=== PATIENT | male | born 1995 ===

== ENCOUNTER 2022-06-29 14:50 | Inpatient (IN) | payer MEDICAID, MEDICARE ==
[2022-06-29] MEDS ORDERED: hydrOXYzine pamoate 25 MG CAP PO PRN (15:21)
[2022-06-29] MEDS ORDERED: chlorproMAZINE 25 MG/ML 2 ML AMP IM PRN (15:21)
[2022-06-29] MEDS ORDERED: LORazepam 2 MG/ML INJ IM PRN (15:21)
[2022-06-29] MEDS ORDERED: chlorproMAZINE 25 MG TAB PO PRN (15:21)
[2022-06-29] MEDS ORDERED: ACETAMINOPHEN TAB 325 MG TAB PO PRN (15:31)
[2022-06-29] MEDS ORDERED: MAGNESIUM HYDROXIDE 2,400 MG/10 ML CUP PO PRN (15:31)
[2022-06-29] MEDS ORDERED: MAG HYDROX/AL HYDROX/SIMETH 30 ML CUP PO PRN (15:31)
[2022-06-29] MEDS ORDERED: QUEtiapine 100 MG TAB PO SCH (21:00)
[2022-06-30] MEDS: VENLAFAXINE HCL 37.5 MG TAB PO SCH ×3 (05:41→08:51)
[2022-06-30] MEDS: NICOTINE 14MG/24HR PATCH TRANSDERM SCH ×2 (08:46→08:51)
[2022-06-30] MEDS: VENLAFAXINE HCL ER 37.5 MG CAP PO SCH (11:27)
[2022-06-30] MEDS: ARIPiprazole 5 MG TAB PO SCH (11:28)
--- NOTE | 2022-06-30 11:48 | P.HP ---
Psychiatric H&P - . H&P Date: 06/30/22 History & Physical: Allergies Allergy/AdvReac Type Severity Reaction Status Date / Time No Known Allergies Allergy Verified 06/30/22 06:02 Vital Signs Temp 97.7 F 06/30/22 05:30 Pulse 83 06/30/22 05:30 Resp 15 06/30/22 05:30 BP 129/83 06/30/22 05:30 Pulse Ox 95 06/30/22 05:30 FiO2 Intake & Output 06/29/22 06/30/22 06/30/22 18:59 06:59 18:59 Weight 77 kg 75.438 kg 06/30/22 11:39 IDENTIFYING DATA: Patient is a 26-year-old male who currently lives in a retirement, is single not , has no kids. He collects SSI. He has a public guardian. HPI: Patient presented to the hospital as a transfer from [facility] and arrived on the unit early this morning. According to the EPS report, patient was apparently agitated at his retirement and was noncompliant with medications and treatment. Patient apparently patient was walking into other people's rooms and was argumentative and having mood swings. Patient was petitioned and a first certificate was completed before transfer. The patient was seen wandering the hallways and agreeable filing writer. He had poor hygiene and grooming. Patient was fairly concrete, evasive and guarded. He spoke about "threatening people and arguing" at his retirement. He states that he was there for 1 day. He claims that "they just wanted me out". He states that he did not harm anybody however states that he almost did. He claims that he had a "weird episode" where he felt very argumentative and agitated. He believes that he does not need medications and states that doctors and pharmaceutical companies are "trying to make money off medications" and he felt that he does not need it for himself. He claims that his mood is "low". He describes an increase in his anxiety lately. He has very poor insight and judgment. He claims that his sleep and appetite have been fair. Patient denies any current suicidal or homicidal ideations intent or plan. At this time patient denies any auditory or visual hallucinations. Patient denies any flight of ideas racing thoughts and increased in goal directed behavior. Patient admits to using marijuana daily and cigarettes daily. PAST PSYCHIATRIC HISTORY: Patient states that he has been admitted several times to different psychiatric units. He claims that he was recently released from [facility] about a week ago. He claims that he does follow up with [facility] and is also followed by the act team. Patient states that he has been on several different antipsychotics in the past however, remember douglas Chua and also claims that he was on Effexor in the past Ativan and Tegretol.. He states that he lives previously on a court order. He claims that he once attempted to hang himself when he was in longterm. PMH:denies ALLERGIES: as per EMR CHEMICAL DEPENDENCY HISTORY: as per HPI FAMILY PSYCHIATRIC/SUBSTANCE USE HISTORY: He states that his grandfather and his uncle both had schizophrenia. SOCIAL HISTORY: Patient was born and raised in [place] and also in [facility]. He states that he completed high school and some college. 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 His current currently collecting SSI. He has a guardian. He is single has no kids. He lives in a retirement. He served time in longterm for possession and also several drug-related charges. MENTAL STATUS EXAM: General Appearance: Patient appears to be thin, disheveled appearance, tattoos, stated age is alert, irritable at times, guarded and evasive. Patient appears to have poor hygiene and grooming. Behavior: Patient is seated without any agitated behavior. Irritable and guarded and evasive. Speech: Patient's speech is fluent and nonpressured. [place]. Mood/Affect: Patient reports their mood is "low", affect is congruent and constricted. Suicidality/Homicidality: Patient denies having any homicidal ideation intent or plan. Denies any suicidal ideations intent or plan Perceptions: Patient denies any visual hallucinations and denies any auditory hallucinations Though content/process: There is no evidence of any delusional thought content and thought process is linear and goal-directed. Very poor insight and judgment. Positive content. Memory and concentration: AOX3, grossly intact for the purposes of this session. Can spell "WORLD" backwards Judgment and insight: poor STRENGTHS/WEAKNESSES: strength is that patient is resilient. Weakness is that patient has poor judgment and is impulsive INTELLECT: average IMPRESSIONS: Psychosis unspecified, likely schizoaffective disorder versus schizophrenia\\ Cannabis use disorder Nicotine dependence PLAN: -Patient is admitted under involuntary status to MHU for stabilization of psychiatric symptoms and safety. Patient has signed medication consent and is placed in patient's chart. A second certification was completed and along with petition will be filed for court. -Medications : Will start patient on Abilify 5 mg daily for psychosis/mood stabilization. Effexor 37.5 mg daily for mood/anxiety. -Ativan, thorazine, Vistaril PRN for agitation/aggression and anxiety -Patient was counselled on substance abuse and desired to cut back on use -Patient was informed of the risks, benefits and side effects of the medication and patient verbally consented to taking the medications. Patient signed med consent form and was placed in chart. -Internal Medicine consult to perform medical evaluation and physical. -NRT - nicotine patch and nicotine gum -SW on board for discharge planning. Encourage patient to participate in groups to work on coping skills. Will await deferral and court date. 06/30/22 11:47
[2022-06-30] MEDS: NICOTINE GUM (POLACRILEX) 2 MG GUM BUCCAL PRN ×2 (12:08→21:25)
[2022-06-30 17:58] LABS: ALT 23 U/L (4-49); AST 24 U/L (17-59); African American GFR (CKD) >90 (>60 ml/min/1.73 sqM); Albumin 4.6 g/dL (3.5-5.0); Alkaline Phosphatase 94 U/L (38-126); Anion Gap 12 mmol/L; Bilirubin, Delta 0.2 mg/dL (0.0-0.2); Blood Urea Nitrogen 17 mg/dL (9-20); Calcium 9.6 mg/dL (8.4-10.2); Carbon Dioxide 26 mmol/L (22-30); Chloride 101 mmol/L (98-107); Glucose 95 mg/dL (74-99); Non-African American GFR(CKD) >90 (>60 ml/min/1.73 sqM); Potassium 4.7 mmol/L (3.5-5.1); Sodium 139 mmol/L (137-145); Total Bilirubin 0.2 mg/dL (0.2-1.3); Total Protein 7.2 g/dL (6.3-8.2)
--- NOTE | 2022-06-30 18:26 | P.MDCNMH ---
History of Present Illness H&P Date: 06/30/22 History of Presenting Illness: Patient is a 26-year-old male with a past medical history of schizoaffective disorder, bipolar disorder, and ADHD. He resides in a care home and has a public guardian. Patient is currently admitted to inpatient mental health unit after being transferred from [facility] secondary to medication and treatment noncompliance. We have been consulted for medical management throughout patient's hospitalization. Patient seen and evaluated in mental health unit. Patient cooperative. He was alert and oriented 4 answering all questions appropriately. He reports smoking one pack of cigarettes daily, daily cannabis use, and occasional EtOH use. Patient also admits to prescription abuse and abusing his medications taking more than what he is supposed to. He currently denies having any complaints including headache, lightheadedness, dizziness, chest pain, palpitations, shortness of breath, changes in appetite, nausea, or vomiting. Patient denies having history of self-inflicted injuries, suicidal or homicidal ideations, or experiencing any verbal/tactile/auditory hallucinations. .. CMP reviewed and was unremarkable. Review of systems: Pertinent positives and negatives as discussed in HPI, a complete review of systems was performed and all other systems are negative. Physical exam: Vital signs reviewed and stable. General: Nontoxic, no distress and appears stated age. Derm: Skin warm and dry, normal coloration for ethnicity. Head: Atraumatic, normocephalic and symmetric. Eyes: EOMs intact, no lid lag, and anicteric sclera Mouth: no lip lesions, mucus membranes moist Cardiovascular: regular rate and rhythm with normal S1S2, no murmur, positive posterior tibial pulses bilaterally, and cap refill < 2 seconds. Lungs: Respirations even, regular, and unlabored on room air. Lungs CTA bilaterally, no rhonchi, no rales, no wheezing, and no accessory muscle usage. Abdominal: soft, nontender to palpation, no guarding, no appreciable organomegaly Ext: ROM intact. No gross muscle atrophy, no edema, no contractures Neuro: Speech clear, face symmetrical and CN II-XII grossly intact with no noted focal neuro deficits Psych: Alert and oriented to person, place, time, and situation. Appropriate and pleasant affect. Assessment and Plan of Care: Schizoaffective disorder, bipolar disorder, and ADHD with reports of medication and treatment noncompliance -Management per primary admitting psychiatric team. -Provide safe and supportive care. Daily Cannabis use -Recommend cessation of use Nicotine dependence -Recommend smoking cessation -Nicotine patch Thank you for allowing us to participate in the care of this pleasant patient. Do not hesitate to contact us with questions. Someone can be reached from the [facility] hospitalist group all hours of the day at [phone] or via [employer]. Past Medical History Smoking Status: Current every day smoker Medications and Allergies Home Medications Medication Instructions Recorded Confirmed Type Lurasidone [Latuda] 20 mg PO BID 06/29/22 06/30/22 History QUEtiapine [SEROquel] 200 mg PO HS 06/29/22 06/30/22 History Venlafaxine HCl [Effexor] 37.5 mg PO BID 06/29/22 06/30/22 History carBAMazepine 100 mg PO TID 06/29/22 06/30/22 History hydrOXYzine HCL 25 mg PO TID 06/29/22 06/30/22 History Allergies Allergy/AdvReac Type Severity Reaction Status Date / Time No Known Allergies Allergy Verified 06/30/22 06:02 Physical Exam Vitals: Vital Signs Temp Pulse Resp BP Pulse Ox 06/30/22 05:30 97.7 F 83 15 129/83 95 Intake and Output 06/29/22 06/30/22 06/30/22 22:59 06:59 14:59 Other: Weight 77 kg 75.438 kg Cranial Nerve Examination - Cranial Nerves Cranial Nerve II- Optic: Intact Cranial Nerve III- Oculomotor: Intact Cranial Nerve IV- Trochlear: Intact Cranial Nerve V- Trigeminal: Intact Cranial Nerve - Abducens: Intact Cranial Nerve VII- Facial: Intact Cranial Nerve VIII- Auditory: Intact Cranial Nerve IX- Glossopharyngeal: Intact Cranial Nerve X- Vagus: Intact Cranial Nerve XI- Accessory: Intact Cranial Nerve XII- Hypoglossal: Intact Results CBC & Chem 7: 06/30/22 16:56
[2022-07-01] MEDS: LORazepam 1 MG TAB PO PRN ×2 (00:50→16:34)
[2022-07-01 01:38] LABS: Chol/HDL Ratio 4.94 Ratio; LDL Cholesterol,Calculated 74.2 mg/dL (0.0-131.0)
[2022-07-01] MEDS: NICOTINE 14MG/24HR PATCH TRANSDERM SCH (09:00)
[2022-07-01] MEDS: ARIPiprazole 5 MG TAB PO SCH (09:01)
[2022-07-01] MEDS: VENLAFAXINE HCL ER 37.5 MG CAP PO SCH (09:02)
[2022-07-01] MEDS: NICOTINE GUM (POLACRILEX) 2 MG GUM BUCCAL PRN ×4 (09:03→22:07)
--- NOTE | 2022-07-01 11:21 | P.PN ---
Progress Note - Text Progress Note Date: 07/01/22 Interval History: Patient was seen sitting in a group today and was directable and agreeable to speak with senior technical writer in the office. Patient initially appeared to be somewhat irritable with senior technical writer and asked "we really have to do this every day". He gradually became more cooperative during the interview and states that he is doing "a bit better" compared to yesterday. He states that he does feel little bit less irritable and less impulsive. He states that he is tolerating the medications fairly well at this time not reporting any side effects. 90 overnight complaints. He states that he is able to sleep about 5-6 hours last night however was asking about potentially being started on trazodone as it is helped him in the past. He states his appetite has been improving. He has gone to some groups however claims that he is not learning much from them. At this time patient denies any suicidal or homical ideations, intent or plan. Patient denies any auditory, visual hallucinations and denies any paranoia or delusions. Patient denies any side effects from the medications and has been compliant with meds. Mental Status Exam: General Appearance: Patient appears to be thin, tattoos, stated age is alert, less irritable at times, more directable today. Patient appears to have improvi ng hygiene and grooming. Behavior: Patient is seated without any agitated behavior. Irritable and guarded, improving midlly Speech: Patient's speech is fluent and nonpressured. [place]. Mood/Affect: Patient reports their mood is "better and more stable", affect is congruent and constricted. Suicidality/Homicidality: Patient denies having any homicidal ideation intent or plan. Denies any suicidal ideations intent or plan Perceptions: Patient denies any visual hallucinations and denies any auditory hallucinations Though content/process: There is no evidence of any delusional thought content and thought process is linear and goal-directed. concrete Memory and concentration: AOX3, grossly intact for the purposes of this session Judgment and insight: chronically poor, improving mildly IMPRESSIONS: Psychosis unspecified, likely schizoaffective disorder versus schizophrenia Cannabis use disorder Nicotine dependence Plan: -Patient continues to meet criteria for inpatient psychiatric admission for symptom stabilization and safety. Patient has [not] signed [adult voluntary form and] [medication consent] and was placed in patient's chart. -Medications: increase Abilify 10 mg daily for psychosis/mood stabilization. Effexor 37.5 mg daily for mood/anxiety. added trazodone 50 mg qhs for insomnia/mood. -Ativan, thorazine, Vistaril PRN for agitation/aggression and anxiety -NRT - [nicotine patch] and nicotine gum -SW on board for discharge planning. Encouraged the patient to participate in milieu. Patient is on an active treatment order at this time. will need to transition patient onto NI prior to d/c to ensure compliance this will occur likely over the weekend. likely discharge tuesday.
[2022-07-01] MEDS: traZODone HCL 50 MG TAB PO SCH (20:45)
[2022-07-02] MEDS ORDERED: ARIPiprazole 10 MG TAB PO SCH (09:00)
[2022-07-02] MEDS: VENLAFAXINE HCL ER 37.5 MG CAP PO SCH (09:01)
[2022-07-02] MEDS: NICOTINE GUM (POLACRILEX) 2 MG GUM BUCCAL PRN ×2 (09:15→18:53)
[2022-07-02] MEDS ORDERED: VENLAFAXINE HCL ER 37.5 MG CAP PO STA (11:47)
--- NOTE | 2022-07-02 12:17 | P.PN ---
Progress Note - Text Progress Note Date: 07/02/22 Interval History: Patient was seen sitting in a group today and was directable and agreeable to speak with designer/writer in the office. Patient continues to be fairly concrete and positive content. He denied any problems with medications overnight. He gradually became more cooperative during the interview and states that he is doing "a bit better" compared to yesterday. He states that he does feel little bit less irritable and less impulsive. He states that he is tolerating the medications fairly well. He is not reporting any side effects at this time. He states that he slept about 6 hours last night. He claims that he has been going to groups and attending to participate. He continues to not know where he is going be discharged. Continues to have chronically poor insight and judgment. We spoke about transitioning onto long-acting injection however patient was fairly resistant to it despite being on a court order. Woven Blind Loom Tender attempted to engage this patient in answer any questions however patient was hostile and states that he does not "believe in injections". At this time patient denies any suicidal or homical ideations, intent or plan. Patient denies any auditory, visual hallucinations and denies any paranoia or delusions. Patient denies any side effects from the medications and has been compliant with meds. Mental Status Exam: General Appearance: Patient appears to be thin, tattoos, stated age is alert, less irritable at times, more directable today. Patient appears to have improving hygiene and grooming. Behavior: Patient is seated without any agitated behavior. Irritable and guarded, improving midlly Speech: Patient's speech is fluent and nonpressured. [place]. Mood/Affect: Patient reports their mood is "ok", affect is congruent and constricted yet somewhat irritable. Suicidality/Homicidality: Patient denies having any homicidal ideation intent or plan. Denies any suicidal ideations intent or plan Perceptions: Patient denies any visual hallucinations and denies any auditory hallucinations Though content/process: There is no evidence of any delusional thought content and thought process is linear and goal-directed. concrete Memory and concentration: AOX3, grossly intact for the purposes of this session Judgment and insight: chronically poor, improving mildly IMPRESSIONS: Psychosis unspecified, likely schizoaffective disorder versus schizophrenia Cannabis use disorder Nicotine dependence Plan: -Patient continues to meet criteria for inpatient psychiatric admission for symptom stabilization and safety. Patient has [not] signed [adult voluntary form and] [medication consent] and was placed in patient's chart. -Medications: increase Abilify 15 mg daily for psychosis/mood stabilization and will likely hold at this dose. Woven Blind Loom Tender discussed with patient the transition onto Abilify Maintenna to ensure compliance and will order this 400 mg IM for tuesday morning. increase Effexor 75 mg daily for mood/anxiety, trazodone 50 mg qhs for insomnia/mood. -Ativan, thorazine, Vistaril PRN for agitation/aggression and anxiety -NRT - [nicotine patch] and nicotine gum -SW on board for discharge planning. Encouraged the patient to participate in milieu. Patient is on an active treatment order at this time. will need to transition patient onto NI prior to d/c to ensure compliance this will occur likely over the weekend. likely discharge tuesday-tuesday depending on where zachary wants patient to be discharged to.
[2022-07-02] MEDS: LORazepam 1 MG TAB PO PRN (18:52)
[2022-07-02] MEDS: traZODone HCL 50 MG TAB PO SCH (20:44)
[2022-07-03] MEDS: VENLAFAXINE HCL ER 75 MG CAP PO SCH (08:28)
[2022-07-03] MEDS: ARIPiprazole 15 MG TAB PO SCH (08:28)
[2022-07-03] MEDS ORDERED: ARIPiprazole IM 400 MG VIAL (NO COST) PHARMACY STOCK IM ONE (09:00)
[2022-07-03] MEDS ORDERED: ARIPiprazole IM SYRINGE 400 MG (NO CHARGE) PHARMACY STOCK IM ONE (09:00)
--- NOTE | 2022-07-03 13:58 | P.PN ---
Progress Note - Text Progress Note Date: 07/03/22 Clinical Problems: Unspecified psychotic disorder, rule out schizoaffective disorder, rule out schizophrenia, cannabis use disorder, tobacco use Interim history: I reviewed the medical record and interviewed the patient. The patient's only concern is housing. He stated that he was in a [facility] prior to admission but had to leave because "an argument." As of now he has no stable housing. He denied feeling depressed or having thoughts of or suicide. He denied feeling angry, irritable or suspicious. He denied suicidal ideation. He denied experiencing auditory, visual or olfactory hallucinations, ideas reference, thought insertion or paranoia. He is compliant with prescribed medications. He intermittently attends therapeutic groups and activities. He is posed no management problem and several episodes of behavioral dyscontrol. Mental status exam: He presented as a casually groomed 18-year-old male. He had a galan and multiple tattoos. He made eye contact and appeared to attend to the interview. He had a blunted facial expression. He was alert and oriented to person, place and time. Slight psychomotor retardation but no abnormal involuntary movements. His gait was slow but steady. His speech was spontaneous with decreased rhythm and volume. His affect was flat. He denied suicidal ideation, wishes or homicidal ideation. He denied feeling hopeless, helpless or worthless. He ruminated about his living circumstances. He did not express ideas reference, paranoid ideation or delusions. His thinking was concrete but his associations were coherent, logical and goal directed. He denied hallucinations did not appear to be responding to internal stimuli. Assessment: He presented no episodes of aggression or agitation since admission. Plan: Continue inpatient treatment. Safety precautions. Continue current psychotropic medications Abilify 15 mg daily, trazodone 50 mg at bedtime and Effexor XR 75 mg daily. Thorazine and/or Ativan when necessary for agitation, aggression acute psychosis. Encourage participation in therapeutic groups and activities. Evaluate clinical status response to treatment daily basis.
[2022-07-03] MEDS: LORazepam 1 MG TAB PO PRN (18:55)
[2022-07-03] MEDS: traZODone HCL 50 MG TAB PO SCH (20:08)
[2022-07-03] MEDS: NICOTINE GUM (POLACRILEX) 2 MG GUM BUCCAL PRN (20:08)
[2022-07-04] MEDS: ARIPiprazole 15 MG TAB PO SCH (08:39)
[2022-07-04] MEDS: VENLAFAXINE HCL ER 75 MG CAP PO SCH (08:39)
[2022-07-04] MEDS: LORazepam 1 MG TAB PO PRN ×3 (11:53→20:47)
[2022-07-04] MEDS: NICOTINE GUM (POLACRILEX) 2 MG GUM BUCCAL PRN ×4 (11:53→20:47)
--- NOTE | 2022-07-04 12:03 | P.PN ---
Progress Note - Text Progress Note Date: 07/04/22 Clinical Problems: Unspecified psychotic disorder, rule out schizoaffective disorder, rule out schizophrenia, cannabis use disorder, tobacco use Interim history: I reviewed the medical record and interviewed the patient. He denied problems or concerns today. He has been requesting Ativan for complaints of subjective anxiety. He is compliant with prescribed medications. He intermittently attends therapeutic groups and activities. He is posed no management problem and several episodes of behavioral dyscontrol. Mental status exam: He was pleasant and cooperative. He made eye contact and appeared to attend to the interview. He had a blunted facial expression. He was alert and oriented to person, place and time. He had slight psychomotor retardation but no abnormal involuntary movements. His gait was slow but steady. His speech was spontaneous with decreased rhythm and volume. His affect was flat. He denied suicidal ideation, wishes or homicidal ideation. He denied feeling hopeless, helpless or worthless. He ruminated about his living circumstances. He did not express ideas reference, paranoid ideation or delusions. His thinking was concrete but his associations were coherent, logical and goal directed. He denied hallucinations did not appear to be responding to internal stimuli. Assessment: He is moderately mentally ill remarkably improve from admission Plan: Continue inpatient treatment. Safety precautions. Continue current psychotropic medications Abilify 15 mg daily, trazodone 50 mg at bedtime and Effexor XR 75 mg daily. Thorazine and/or Ativan when necessary for agitation, aggression acute psychosis. Encourage participation in therapeutic groups and activities. Evaluate clinical status response to treatment daily basis.
[2022-07-04] MEDS: traZODone HCL 50 MG TAB PO SCH (20:47)
[2022-07-05] MEDS: VENLAFAXINE HCL ER 75 MG CAP PO SCH (09:09)
[2022-07-05] MEDS: ARIPiprazole 15 MG TAB PO SCH (09:09)
[2022-07-05 09:10] VITALS: BP 117/79; PULSE 114; RESP 20; TEMP 97.3
[2022-07-05] MEDS: LORazepam 1 MG TAB PO PRN (09:22)
[2022-07-05] MEDS ORDERED: VENLAFAXINE HCL ER 75 MG CAP PO STA (09:39)
[2022-07-05] MEDS: NICOTINE GUM (POLACRILEX) 2 MG GUM BUCCAL PRN (09:52)
--- NOTE | 2022-07-05 09:52 | P.DS ---
Providers Date of admission: 06/30/22 05:31 Expected date of discharge: 07/05/22 Attending physician: Jason Michel MD Consults: 06/29/22 15:31 Consult Physician Routine Consulting Provider: [facility] Consult Reason/Comments: H & P Do you want consulting provider notified?: Yes, Notify in am Primary care physician: Stated None - Discharge Diagnosis(es) (1) Unspecified psychosis Current Visit: Yes Status: Acute Priority: High (2) Cannabis use disorder Current Visit: Yes Status: Acute Priority: Medium (3) Nicotine dependence Current Visit: Yes Status: Acute Priority: Low Hospital Course: Admission HPI: Admission note was completed by bond writer "Patient is a 26-year-old male who currently lives in a prison, is single not , has no kids. He collects SSI. He has a public guardian. Patient presented to the hospital as a transfer from [facility] and arrived on the unit early this morning. According to the EPS report, patient was apparently agitated at his prison and was noncompliant with medications and treatment. Patient apparently patient was walking into other people's rooms and was argumentative and having mood swings. Patient was petitioned and a first certificate was completed before transfer. The patient was seen wandering the hallways and agreeable promotion writer. He had poor hygiene and grooming. Patient was fairly concrete, evasive and guarded. He spoke about "threatening people and arguing" at his prison. He states that he was there for 1 day. He claims that "they just wanted me out". He states that he did not harm anybody however states that he almost did. He claims that he had a "weird episode" where he felt very argumentative and agitated. He believes that he does not need medications and states that doctors and pharmaceutical companies are "trying to make money off medications" and he felt that he does not need it for himself. He claims that his mood is "low". He describes an increase in his anxiety lately. He has very poor insight and judgment. He claims that his sleep and appetite have been fair. Patient denies any current suicidal or homicidal ideations intent or plan. At this time patient denies any auditory or visual hallucinations. Patient denies any flight of ideas racing thoughts and increased in goal directed behavior. Patient admits to using marijuana daily and cigarettes daily." Hospital course: Upon admission to the unit patient was directable and agreeable to commence treatment and signed adult voluntary form . Patient is however currently on active treatment in order. Patient got along well with other patients on the unit and followed unit protocol. Patient was compliant with the medications and denied any side effects throughout hospital course. Patient was started on Abilify and increased to a dose of 15 mg by mouth daily for psychosis/mood stabilization. Patient was given Abilify Maintenna 400 mg IM on 07/03 and will be due for his next dose on 07/30 monthly. Patient was also on trazodone 50 mg daily at bedtime for insomnia/mood and also Effexor was increased to a dose of 150 mg daily for mood/anxiety. Patient spoke of his stressors and engaged in therapy both group and individual. Patient was also seen by medical team for hi story and physical exam. Throughout the course of the hospitalization patient gradually improved with regards to mood, anxiety, psychosis/aggression, sleep and returned back to their baseline level of functioning. On the day of discharge patient denied any suicidal or homicidal ideations intent or plan denied any auditory or visual hallucinations. Patient endorsed wanting to live for his future and his health. The patient denied any access to guns or weapons. Patient denied any paranoia and did not endorse any delusions. Vision has chronically poor insight and judgment. Patient does have a significant history of substance abuse and was counseled on abstaining from all substances including alcohol and marijuana. Patient was offered however declined inpatient substance-abuse rehab. Patient was also counseled on the medications and need for regular compliance and was encouraged to follow-up with their outpatient appointment for mental health and also for primary care. barn worker to communicate and arrange with patient's guardian today for discharge to longterm in [facility]. Mental status exam: General Appearance: Patient appears to have multiple tattoos, stated age is lisa rt, directable, and cooperative. Patient is in no acute distress and has improved hygiene and grooming Behavior: Patient is calmly seated without any agitated behavior. Directable. Speech: Patient's speech is fluent and nonpressured. Mood/Affect: Patient reports their mood is "ok", affect is congruent and constricted Suicidality/Homicidality: Patient denies having any suicidal or homicidal alyssa ation intent or plan. Perceptions: Patient denies any auditory or visual hallucinations. Though content/process: There is no evidence of any delusional thought content and thought process is linear and goal-directed. [place] Memory and concentration: AOX3, grossly intact for the purposes of this session. Can spell "WORLD" backwards correctly. Judgment and insight: chronically poor, however has improved with guarded prognosis Impression: Psychosis unspecified likely schizoaffective disorder versus schizophrenia Cannabis use disorder Nicotine dependence Plan: -Continue with discharge today as patient has improved and stabilized psychiatrically and is not currently an imminent threat to himself and/or others. Patient will remain at chronically elevated risk for harm to self and/or others due to his impulsivity and substance abuse. -Continue medications: Continue with Abilify by mouth 15 mg for 12 more days then discontinue.Patient was given Abilify Maintenna 400 mg IM on 07/03 and will be due for his next dose on 07/30 monthly. Trazodone 50 mg daily at bedtime for insomnia/mood, Effexor XR 150 mg daily for mood/anxiety. -Patient was counseled on the need for medication compliance and appropriate follow-up at mental health and also primary care for medical issues. Patient verbalized understanding and agreed. -Social work to help arrange patient's discharge today and coordinate with guardian to [facility]. Social work also to arrange for patients follow up appointments with [facility] for psychiatric care along with follow up with primary care provider. -Patient counseled on abstaining from recreational drugs and marijuana and alcohol. Was informed/educated on the adverse effects on their physical and mental health. Patient verbally agreed and understood. Patient was offered substance abuse treatment however declined at this time. -Patient was instructed to return to the hospital or seek immediate medical care if their psychiatric or medical symptoms do worsen or reoccur. Allergies Allergy/AdvReac Type Severity Reaction Status Date / Time No Known Allergies Allergy Verified 06/30/22 06:02 Laboratory Results Sodium 139 mmol/L (137-145) 06/30/22 16:56 Potassium 4.7 mmol/L (3.5-5.1) 06/30/22 16:56 Chloride 101 mmol/L (98-107) 06/30/22 16:56 Carbon Dioxide 26 mmol/L (22-30) 06/30/22 16:56 Anion Gap 12 mmol/L 06/30/22 16:56 BUN 17 mg/dL (9-20) 06/30/22 16:56 Creatinine 0.85 mg/dL (0.66-1.25) 06/30/22 16:56 Est GFR (CKD-EPI)AfAm >90 (>60 ml/min/1.73 sqM) 06/30/22 16:56 Est GFR (CKD-EPI)NonAf >90 (>60 ml/min/1.73 sqM) 06/30/22 16:56 Glucose 95 mg/dL (74-99) 06/30/22 16:[address] Glu mg/dL 109 06/30/22 16:56 Hemoglobin A1c 5.4 % (0.0-6.0) 06/30/22 16:56 Calcium 9.6 mg/dL (8.4-10.2) 06/30/22 16:56 Total Bilirubin 0.2 mg/dL (0.2-1.3) 06/30/22 16:56 Conjugated Bilirubin 0.0 mg/dL (0.0-0.3) 06/30/22 16:56 Unconjugated Bilirubin 0.0 mg/dL (0.0-1.1) 06/30/22 16:56 Delta Bilirubin 0.2 mg/dL (0.0-0.2) 06/30/22 16:56 AST 24 U/L (17-59) 06/30/22 16:56 ALT 23 U/L (4-49) 06/30/22 16:56 Alkaline Phosphatase 94 U/L (38-126) 06/30/22 16:56 Total Protein 7.2 g/dL (6.3-8.2) 06/30/22 16:56 Albumin 4.6 g/dL (3.5-5.0) 06/30/22 16:56 Triglycerides 259.00 mg/dL (0.00-149.00) H 06/30/22 16:56 Cholesterol 158.00 mg/dL (0.00-200.00) 06/30/22 16:56 LDL Cholesterol, Calc 74.2 mg/dL (0.0-131.0) 06/30/22 16:56 VLDL Cholesterol, Calc 51.80 mg/dL (5.00-40.00) H 06/30/22 16:56 HDL Cholesterol 32.00 mg/dL (40.00-60.00) L 06/30/22 16:56 Cholesterol/HDL Ratio 4.94 Ratio 06/30/22 16:56 TSH 2.170 mIU/L (0.465-4.680) 06/30/22 16:56 Vital Signs Temp 97.3 F L 07/05/22 09:09 Pulse 114 H 07/05/22 09:09 Resp 20 07/05/22 09:09 BP 117/79 07/05/22 09:09 Pulse Ox 95 06/30/22 05:30 FiO2 Patient Condition at Discharge: Stable Plan - Discharge Summary New Discharge Prescriptions: New traZODone HCL [Desyrel] 50 mg PO HS 30 Days tab Nicotine Gum (Polacrilex) [Nicorette] 2 mg BUCCAL Q2HR PRN 28 Days pieceofgum PRN Reason: Nicotine Cravings ARIPiprazole IM [Abilify Maintena] 400 mg IM QMONTHLY #1 each ARIPiprazole [Abilify] 15 mg PO DAILY 12 Days tab Venlafaxine HCl ER [Effexor XR] 150 mg PO DAILY 30 Days cap Discontinued Venlafaxine HCl [Effexor] 37.5 mg PO BID carBAMazepine 100 mg PO TID Lurasidone [Latuda] 20 mg PO BID hydrOXYzine HCL 25 mg PO TID QUEtiapine [SEROquel] 200 mg PO HS Discharge Medication List ARIPiprazole IM [Abilify Maintena] 400 mg IM QMONTHLY #1 each 07/05/22 [Rx] ARIPiprazole [Abilify] 15 mg PO DAILY 12 Days tab 07/05/22 [Rx] Nicotine Gum (Polacrilex) [Nicorette] 2 mg BUCCAL Q2HR PRN 28 Days pieceofgum 07/05/22 [Rx] Venlafaxine HCl ER [Effexor XR] 150 mg PO DAILY 30 Days cap 07/05/22 [Rx] traZODone HCL [Desyrel] 50 mg PO HS 30 Days tab 07/05/22 [Rx] Activity/Diet/Wound Care/Special Instructions: Avoid the use of street drugs and alcohol. Take all prescriptions as prescribed. When you are in need of refills on your medications, please contact your medical provider and/or outpatient psychiatrist to have this done. Please go to scheduled outpatient appointment for aftercare treatment. If symptoms return or become worse, call the crisis line at and/or go to the nearest emergency room for evaluation. Discharge Disposition: OTHER INSTITUTION NOT DEFINED
[2022-07-06] MEDS ORDERED: VENLAFAXINE HCL ER 150 MG CAP PO SCH (09:00)
== END 2022-07-05 13:44 | disposition home or self-care (01) | DRG 885 ==
LOC: 3MHU 06-30 05:31
PROVIDERS: ADMIT Psychiatry & Neurology Psychiatry; ATTEND Psychiatry & Neurology Psychiatry
DX: F25.9 Schizoaffective disorder, unspecified (principal); F90.9 Attention-deficit hyperactivity disorder, unspecified type; F12.10 Cannabis abuse, uncomplicated; F17.210 Nicotine dependence, cigarettes, uncomplicated; Z71.6 Tobacco abuse counseling; Z71.51 Drug abuse counseling and surveillance of drug abuser; F41.9 Anxiety disorder, unspecified; G47.00 Insomnia, unspecified; R45.1 Restlessness and agitation; Z59.01 Sheltered homelessness; Z79.899 Other long term (current) drug therapy; Z81.8 Family history of other mental and behavioral disorders; Z91.14 Patient's other noncompliance with medication regimen; Z91.19 Patient's noncompliance with other medical treatment and regimen; Z91.83 Wandering in diseases classified elsewhere
CPT/HCPCS: 80048; 80061; 80076; 83036; 84443